=== PATIENT | female | born 1995 | race American Indian/Alaskan Native ===

== ENCOUNTER 2019-08-18 11:52 | Emergency (ER) | payer SELFPAY ==
--- NOTE | 2019-08-18 13:20 | Event Note ---
ED Screening Note Date of service: 08/18/19 Time: 13:17 ED Screening Note: Pt complains of cloudy urine, and urinary frequency, and odor x 8 days denies abdominal pain Also complains of bilateral breast rash This initial assessment/diagnostic orders/clinical plan/treatment(s) is/are subject to change based on patients health status, clinical progression and re- assessment by fellow clinical providers in the ED. Further treatment and workup at subsequent clinical providers discretion. Patient/guardian urged not to elope from the ED as their condition may be serious if not clinically assessed and managed. Initial orders include: UA
[2019-08-18 13:56] LABS: Bacteria,Urine 2+ /HPF (Negative); Bilirubin,Urine NEG (Negative); Blood,Urine NEG (Negative); Color,Urine Yellow (Yellow); Protein,Urine <15 mg/dL mg/dL (Negative); Urobilinogen,Urine < 2.0 mg/dL (<2.0)
--- NOTE | 2019-08-18 16:51 | Emergency Department Report ---
ED Female HPI - General Chief complaint: Abdominal Pain Stated complaint: POSSIBLE UTI/RASH BREAST Time Seen by Provider: 08/18/19 13:17 Source: patient Mode of arrival: Ambulatory Limitations: No Limitations - History of Present Illness Initial comments: 23-year-old -[place] female presents to the emergency room stating she thinks she has a UTI. She states that her urine has an older and sometimes it is cloudy. Patient reports he has a rash under both breasts. She states that the rash hurts at times it itches at times. Patient denies any fever chills or vaginal discharge no vaginal bleeding or dysuria. Onset/Timin -: week(s) Quality: aching, other (itches under breast) Are you Now?: No Associated Symptoms: denies: vaginal discharge, vaginal bleeding, abdominal pain, nausea/vomiting, fever/chills - Related Data Sexually active: Yes Allergies Allergy/AdvReac Type Severity Reaction Status Date / Time No Known Allergies Allergy Unverified 08/18/19 11:54 ED Review of Systems ROS: Stated complaint: POSSIBLE UTI/RASH BREAST Other details as noted in HPI Comment: All other systems reviewed and negative ED Past Medical Hx - Past Medical History Previous Medical History?: No - Surgical History Past Surgical History?: No - Social History Smoking Status: Former Smoker Substance Use Type: Alcohol, Marijuana ED Physical Exam - General Limitations: No Limitations General appearance: alert, in no apparent distress - Head Head exam: Present: atraumatic, normocephalic - Eye Eye exam: Present: normal appearance - ENT ENT exam: Present: mucous membranes moist - Neurological Exam Neurological exam: Present: alert, oriented X3 - Psychiatric Psychiatric exam: Present: normal affect, normal mood - Expanded Skin Exam Expanded Description of rash: Present: other (under both breasts hyperpigmented nonerythematous nonedematous no open skin nontender to palpate). Absent: swelling ED Course Vital Signs 08/18/19 13:17 Temperature 98.7 F Pulse Rate 84 Respiratory 18 Rate Blood Pressure 119/71 O2 Sat by Pulse 99 Oximetry ED Medical Decision Making - Medical Decision Making 23-year-old -[place] female presents to the emergency room stating she thinks she has a UTI. She states that her urine has an older and sometimes it is cloudy. Patient reports he has a rash under both breasts. She states that the rash hurts at times it itches at times. Patient denies any fever chills or vaginal discharge no vaginal bleeding or dysuria. Urinalysis is negative for any signs of infection. 's custody patient she can try cortisone [id number] or Lotrisone [id number]-[id number] under both breasts. Patient is to follow-up with her primary care provider for symptoms persist or gets worse Critical care attestation.: If time is entered above; I have spent that time in minutes in the direct care of this critically ill patient, excluding procedure time. ED Disposition Clinical Impression: Contact dermatitis, Rash Disposition: [id number] TO HOME OR SELFCARE Is pt being admited?: No Does the pt Need Aspirin: No Condition: Stable Instructions: Abdominal Pain (ED) Additional Instructions: Urine is negative for any infection. You can use hydrocortisone [id number] or crgn-deq-[id number] Lotrisone cream under both breasts as needed. Follow-up which her primary care provider if his symptoms persist or gets worse Referrals: [facility] [Outside] - 3-5 Days [facility] [Outside] - 3-5 Days Forms: Work/School Release Form(ED)
[2019-08-18 17:15] VITALS: BP 135/96
== END 2019-08-18 17:07 | disposition home or self-care (01) ==
LOC: ED 11:52
DX: L25.9 Unspecified contact dermatitis, unspecified cause (principal); F12.10 Cannabis abuse, uncomplicated; Z87.891 Personal history of nicotine dependence
CPT/HCPCS: 36415; 81001; 84703